=== PATIENT | male | born 1980 | race Caucasian/White ===

== ENCOUNTER 2024-06-25 14:53 | Outpatient (CLI) | payer MEDICARE, OTHER, SELFPAY ==
[2024-06-25 18:54] LABS: Basophils # 0.1 K/mm3 (0-0.2); Basophils % 0.9 % (0.1-2.0); Eosinophils # 0.1 K/mm3 (0.0-0.4); Hematocrit 37.1 % (42.0-52.0); Hemoglobin 12.4 g/dL (14.1-18.0); Lymphocytes # 1.5 K/mm3 (0.7-4.5); Mean Corpuscular HGB Conc 33.4 g/dL (31.8-35.4); Mean Corpuscular Hemoglobin 32.4 pg (27.0-31.2); Mean Corpuscular Volume 97.1 fl (80-94); Mean Platelet Volume 9.1 fl (7.4-10.4); Monocytes # 0.5 K/mm3 (0.1-1.0); Monocytes % 7.2 % (1.7-9.3); Neutrophils # 4.4 K/mm3 (1.8-7.8); Platelet Count 424 K/mm3 (142-424); Red Blood Count 3.82 M/mm3 (4.60-6.20); Red Cell Distribution Width 13.4 % (11.5-17.5); White Blood Count 6.5 K/mm3 (4.8-10.8)
[2024-06-25 19:06] LABS: Alanine Aminotransferase 18 U/L (12-78); Albumin Level 3.5 g/dl (3.5-5.0); Albumin/Globulin Ratio 1.5 (1.1-1.8); Alkaline Phosphatase 103 U/L (38-126); Anion Gap 10.7 mEq/L (5-15); Aspartate Amino Transferase 25 U/L (17-59); Bilirubin,Total 0.5 mg/dl (0.2-1.3); Blood Urea Nitrogen 24 mg/dl (9-20); Carbon Dioxide 21 mmol/L (22.0-30.0); Chloride 114 mmol/L (98-107); Chol/HDL Ratio 2.8 (1-3.5); Cholesterol 86 mg/dl (140-200); Estimated Glomerular Filt Rate 93 ml/min (>60); GFR (African American) 112 ML/MIN (>60); Globulin 2.3 g/dL (1.3-3.2); Glucose 83 mg/dl (74-100); HDL Cholesterol 31 mg/dl (40-60); Potassium 4.7 mmoL/L (3.5-5.1); Sodium 141 mmol/L (136-145); Total Protein,Serum 5.8 g/dl (6.3-8.2); Triglycerides 105 mg/dl (30-150); VLDL Cholesterol 21 mg/dL (0-40)
[2024-06-25 19:14] LABS: Direct LDL Cholesterol 38.06 mg/dL (100-129)
[2024-06-25 21:39] LABS: HIV (1&2) Antibody Rapid NONREACTIVE (NONREACTIVE)
[2024-06-27 08:22] LABS: HCV Ab Non Reactive (Non Reactive)
== END 2024-06-25 23:59 | disposition home or self-care (01) ==
LOC: LAB.DROPOF 06-28 14:54
PROVIDERS: PCP Family Medicine; Visit Provider Family Medicine
DX: G40.909 Epilepsy, unspecified, not intractable, without status epilepticus (principal); E78.5 Hyperlipidemia, unspecified; I10 Essential (primary) hypertension; Z11.59 Encounter for screening for other viral diseases; I25.10 Atherosclerotic heart disease of native coronary artery without angina pectoris; Z95.5 Presence of coronary angioplasty implant and graft
CPT/HCPCS: 80053; 80061; 80156; 85025; 86803; 87389

== ENCOUNTER 2024-09-07 07:36 | Emergency (ER) | payer MEDICARE, OTHER, SELFPAY ==
[2024-09-07 07:36] VITALS: BP 161/109; PULSE 87; RESP 16; TEMP 37; O2SAT 100; BMI 34.2
--- NOTE | 2024-09-07 07:47 | CT_ITS ---
FINAL REPORT TECHNIQUE: Pre-and postcontrast images of the abdomen and pelvis were performed by computed tomography. Extensive 3-D reconstruction images were performed. A CTA was performed. This study was performed with techniques to keep radiation doses as low as reasonably achievable (ALARA). Individualized dose reduction techniques using automated exposure control or adjustment of mA and/or kV according to the patient's size were employed. CLINICAL HISTORY: large painful hemorrhoids COMPARISON: None FINDINGS: ABDOMEN AND PELVIS: The lung bases are clear. Precontrast images demonstrate no evidence of nephrolithiasis. There is moderate hepatomegaly present measuring up to 21 cm in the craniocaudal dimension. The gallbladder is present. The adrenals, spleen and pancreas are unremarkable. The appendix is present. There is a Weston catheter and a decompressed bladder, with a slightly thickened wall. There are bilateral L5 pars defects, with minimal spondylolisthesis at the L5-S1 level. There is prominent perianal soft tissue thickening, likely secondary to the patient's known hemorrhoids. CTA: The abdominal aorta is proper caliber. The SMA, celiac axis, and SWETA are patent. There is no significant stenosis or calcification. There is focal stenosis of the origin of the right renal artery, of approximately 50%. The left renal artery is patent. This is somewhat greater than expected for the patient's chronologic age. There are mild to moderate vascular calcifications present in the proximal iliac arteries, also greater than expected for the patient's chronologic age. No vascular abnormality is noted in the pelvis to explain rectal bleeding. IMPRESSION: Moderate hepatomegaly as described. Prominent perianal soft tissue thickening is noted, consistent with the clinical history of hemorrhoids. However, no significant vascular abnormality is identified in the pelvis. Focal stenosis of the origin of the right renal artery of approximately 50%. There is also moderate calcification of the proximal iliac arteries. Findings are greater than expected given the patient's chronologic age. Reviewed, Interpreted and Dictated by Aron Dodson MD Transcribed by Meera Hairston Authenticated and [facility]
--- NOTE | 2024-09-07 07:50 | ED_ITS ---
Discharge Plan Disposition Patient Disposition: Home, Self-Care Chief Complaint: Urogenital-Male Prescriptions Prescriptions: No Action cyanocobalamin (vitamin B-12) 1,000 mcg capsule 1,000 mcg PO DAILY aspirin 325 mg tablet,delayed release (DR/EC) 325 mg PO DAILY Qty: 90 1RF atorvastatin 80 mg tablet 80 mg PO DAILY Qty: 90 1RF carbamazepine 200 mg capsule, ER multiphase 12 hr 200 mg PO BID Qty: 180 1RF cetirizine [All Day Allergy (cetirizine)] 10 mg tablet 10 mg PO DAILY Qty: 90 1RF ezetimibe 10 mg tablet 10 mg PO DAILY Qty: 90 1RF furosemide 20 mg tablet 20 mg PO DAILY Qty: 90 1RF lisinopril 10 mg tablet 10 mg PO DAILY Qty: 90 1RF mirtazapine 7.5 mg tablet 7.5 mg PO DAILY Qty: 90 1RF nitroglycerin 0.4 mg tablet, sublingual 0.4 mg sublingual Q5M PRN (Reason: chest pain) Qty: 20 1RF Rx Instructions: do not exceed 3 doses per episode paroxetine HCl 40 mg tablet 40 mg PO DAILY Qty: 90 1RF potassium chloride 10 mEq capsule, extended release 10 meq PO DAILY Qty: 90 1RF propranolol 40 mg tablet 40 mg PO BID Qty: 180 1RF omega 3-yiz-fqb-fish oil 120-180-500 mg capsule 1 cap PO DAILY Qty: 90 1RF Referrals Follow up/Referrals: Kee Romo MD [Staff Physician] - See instructions Activity Restrictions/Add. Instructions Additional Instructions/Restrictions: Call your family doctor to establish care for this visit to the emergency department and schedule follow-up within 48 hours to ensure improvement. If you have any worsening of your condition or any other concerning signs or symptoms, return to the emergency department or your primary care doctor for further evaluation. General surgery information here, call them to schedule follow-up about your hemorrhoids. Information with colorectal surgery at [facility] also listed here, contact them to schedule follow-up for prolapsed rectum and definitive treatment. Do 1-2 sitz bath's per day with Epsom salt and a couple inches of water. Also be sure to take MiraLAX 1 capful daily until following up and be sure that you are having 1-[address] daily[address] Maximiliano MD Address: [facility], [place], [address] [place] [id number] Clinical Impressions Clinical Impression: Complete rectal prolapse, External hemorrhoids, Internal hemorrhoid Instructions Patient Instructions: DI for Urinary Tract Infection (UTI), DI for Urinary Tract Infection in Children Print Language Print Language: Czech Discharge ED Provider: Lg Barrera General Adult HPI General Chief complaint: Urogenital-Male Stated complaint: constipated Time Seen by Provider: 09/07/24 07:44 History of Present Illness HPI narrative: Please note that above description of symptoms, in this electronic medical record under categorization of recalled from ER triage doctor by RN are reflective of an initial nursing assessment, however, is not reflective of my full history and physical exam that was personally taken and clarified. Consequentially, this preceding description of symptoms, which may include the patient's categorized chief complaint in the EMR, do not reflect my personal clinical impression, and the ultimate description of history of present illness and patient stated complaints should be deferred to this section of the note. Unless stated otherwise or congruent with this section of the note, additional signs, symptoms, or incongruence should be interpreted as inaccurate with my clinical impression. Related Data Home Medications ?Medication ?Instructions ?Recorded ?Confirmed cyanocobalamin (vitamin B-12) 1,000 mcg PO DAILY 06/25/24 06/25/24 1,000 mcg capsule Previous Rx's ?Medication ?Instructions ?Recorded aspirin 325 mg tablet,delayed 325 mg PO DAILY #90 tabs 06/25/24 release atorvastatin 80 mg tablet 80 mg PO DAILY #90 tabs 06/25/24 carbamazepine 200 mg 200 mg PO BID #180 caps 06/25/24 capsule,extended release [id number] cetirizine 10 mg tablet (All Day 10 mg PO DAILY #90 tabs 06/25/24 Allergy (cetirizine)) ezetimibe 10 mg tablet 10 mg PO DAILY #90 tabs 06/25/24 furosemide 20 mg tablet 20 mg PO DAILY #90 tabs 06/25/24 lisinopril 10 mg tablet 10 mg PO DAILY #90 tabs 06/25/24 mirtazapine 7.5 mg tablet 7.5 mg PO DAILY #90 tabs 06/25/24 nitroglycerin 0.4 mg sublingual 0.4 mg sublingual Q5M PRN chest 06/25/24 tablet pain #20 tabs omega 2-nop-qls-fish oil 120 1 cap PO DAILY #90 caps 06/25/24 mg-180 mg-500 mg capsule paroxetine HCl 40 mg tablet 40 mg PO DAILY #90 tabs 06/25/24 potassium chloride 10 mEq 10 meq PO DAILY #90 caps 06/25/24 capsule,extended release propranolol 40 mg tablet 40 mg PO BID #180 tabs 06/25/24 Allergies Allergy/AdvReac Type Severity Reaction Status Date / Time cefaclor (From Ceclor) Allergy Verified 09/07/24 08:27 Sulfa (Sulfonamide Allergy Verified 09/07/24 08:27 Antibiotics) [facility] Disclaimer: The information contained in this section may have been updated after the patient was seen, as this information can be updated by other users. Medical History (Updated 09/07/24 @ 11:52 by Lg Barrera MD) Corectopia Seizure disorder Hyperlipidemia Hypertension Coronary artery disease Myocardial infarction Learning disability Mood disorder Edentulous Surgical History (Updated 06/25/24 @ 14:36 by Ike Walters MD) Stented coronary artery History of tonsillectomy and adenoidectomy Social History Smoking Status: Current every day smoker alcohol intake: never current occupational status: disabled Travel in the last 8 weeks: None Have you lived/traveled outside [place] in past 30 days?: No Contact w/someone who lives/traveled outside US past 30 days?: No Exposure to someone with infectious disease in past 14 days?: No Do you have a fever (greater than 100.4 F or 38 C)?: No Have you tested positive for COVID-19: No Exposed to someone with COVID-19 in past 14 days?: No Do you have a sore throat?: No Do you have a cough?: No Do you have any weakness?: No Do you have any diarrhea?: No Are you experiencing any unusual bleeding?: No Do you have any muscle aches/pain?: No Do you have any abdominal pain?: No Are you experiencing loss of taste or smell?: No ROS Obtained: Yes All systems reviewed & no additional complaints except as documented Physical Exam General General appearance: alert Head Head exam: atraumatic and normocephalic Eye Eye exam: Present normal appearance, PERRL and EOMI Neck Neck exam: Present normal inspection, full ROM and trachea midline Respiratory Respiratory exam: Absent respiratory distress, wheezes, stridor, accessory muscle use or prolonged expiratory phase Cardiovascular Cardiovascular exam: Present other (Pulses equal symmetric in upper and lower extremities) Abdominal Exam Abdominal exam: Present soft; Absent distention, tenderness, guarding, rebound or pulsatile mass Rectal Exam Rectal exam: Present other (Grossly positive bladder rectum. Numerous large internal and external hemorrhoids, none are thrombosed. Patient has mild rectal prolapse) Extremities Exam Extremities exam: Absent edema Neurological Exam Neurological exam: Present alert, oriented X3 and CN II-XII intact; Absent motor sensory deficit Skin Skin exam: Present warm and dry; Absent diaphoresis or erythema Medical Decision Making Medical Records Medical records reviewed: Yes I reviewed the patient's medical records. Screening: Per USPSTF and CDC recommendations, given the prevalence of disease in our region, it is our hospital?s policy to screen for HIV and viral Hepatitis for all patients aged 18 and over and those with ongoing risk factors. Ulices Inquiry Pt receiving controlled substance: No Ulices was queried for this patient: No Vital Signs: 09/07/24 07:36 09/07/24 08:11 09/07/24 10:42 Temperature 98.6 F Temperature Source Oral Pulse Rate 87 84 Pulse Rate [Left Radial] 87 Respiratory Rate 16 Blood Pressure 147/84 H 127/85 Blood Pressure [Right Arm] 161/109 H Blood Pressure Mean [Right Arm] 126 02 Sat by Pulse Oximetry 100 97 99 Oxygen Delivery Method Room Air Room Air Room Air 09/07/24 11:00 09/07/24 11:31 Temperature Temperature Source Pulse Rate 76 76 Pulse Rate [Left Radial] Respiratory Rate Blood Pressure 121/81 124/85 Blood Pressure [Right Arm] Blood Pressure Mean [Right Arm] 02 Sat by Pulse Oximetry 97 97 Oxygen Delivery Method Room Air Room Air Lab Data Lab Results 09/07/24 07:59: Urine Color Yellow, Urine Appearance Clear, Urine pH 6.0, Ur Specific [place] 1.010, Urine Protein Negative, Urine Glucose (UA) Negative, Urine Ketones Negative, Urine Blood 1+ A, Urine Nitrate Negative, Urine Bilirubin Negative, Urine Urobilinogen 0.2, Ur Leukocyte Esterase Negative, Urine RBC 3-5, Urine WBC None, Ur Squamous Epith Cells Occasional, Urine Bacteria Trace 09/07/24 08:01: WBC 9.1, RBC 3.76 L, Hgb 11.7 L, Hct 33.8 L, MCV 89.9, MCH 31.1, MCHC 34.6, RDW 12.5, Plt Count 381, MPV 9.6, Neut % (Auto) 64.3, Lymph % (Auto) 22.4, [place] % (Auto) 11.5 H, Eos % (Auto) 1.2, Baso % (Auto) 0.4, Neut # (Auto) 5.8, Lymph # (Auto) 2.0, [place] # (Auto) 1.0, Eos # (Auto) 0.1, Baso # (Auto) 0.0, Sodium 132 L, Potassium 3.2 L, Chloride 102, Carbon Dioxide 23, Anion Gap 10.2, BUN 12, Creatinine 0.80, Estimated Creat Clear 174, Estimated GFR 106, Est GFR ( Amer) 128, Glucose 106 H, Lactate 1.0, Calcium 9.2, Total Bilirubin 0.4, AST 26, ALT 19, Alkaline Phosphatase 97, Total Protein 6.4, Albumin 3.9, Globulin 2.5, Albumin/Globulin Ratio 1.6, Lipase 85 09/07/24 08:01 09/07/24 08:01 Orders (Tests/Meds): ED MEDICATIONS Discontinued Medications Generic Name Dose Route Start Last Admin Trade Name Viv PRN Reason Stop Dose Admin Hydromorphone HCl 0.5 mg 09/07/24 07:47 09/07/24 08:00 Hydromorphone 2mg/Ml Syringe IV 09/07/24 07:48 0.5 mg ONCE ONE Administration Hydromorphone HCl 1 mg 09/07/24 11:14 09/07/24 11:18 Hydromorphone 2mg/Ml Syringe IV 09/07/24 11:15 1 mg ONCE ONE Administration Iopamidol 80 ml 09/07/24 09:47 09/07/24 09:48 Iopamidol-370 (76%);100ml Bottle IV 09/07/24 09:48 80 ml ONCE ONE Administration Ketorolac Tromethamine 15 mg 09/07/24 07:47 09/07/24 08:00 Ketorolac 30mg/Ml Vial IV 09/07/24 07:48 15 mg ONCE ONE Administration Ondansetron HCl 4 mg 09/07/24 07:47 09/07/24 08:00 Ondansetron 4mg/2ml Vial IV 09/07/24 07:48 4 mg ONCE ONE Administration Sodium Chloride 50 ml 09/07/24 09:47 09/07/24 09:48 0.9 % Sodium Chloride 50 Ml Vial IV 09/07/24 09:48 50 ml ONCE ONE Administration Sodium Chloride 10 ml 09/07/24 09:47 09/07/24 09:48 Sodium Chloride 0.9% 10ml Syr (Rad Only) IV 09/07/24 09:48 10 ml ONCE ONE Administration ORDERS Category Date Time Status CT angio abdomen pelvis Stat Cat Scan 09/07/24 07:47 Completed CBC w/Auto Diff [Complete Blood Count Auto Diff] Stat Lab 09/07/24 08:01 Completed CMP [Comprehensive Metabolic Panel] Stat Lab 09/07/24 08:01 Completed Lactic Acid Stat Lab 09/07/24 08:01 Completed Lipase Stat Lab 09/07/24 08:01 Completed UA [Urinalysis and Microscopic] Stat Lab 09/07/24 07:59 Completed Medical Decision Narrative: 44-year-old male with chronic constipation and hemorrhoids presenting with hemorrhoid pain and difficulty urinating. States that he has been grunting to urinate for the past couple of days. Last bowel movement was yesterday and was small, hard efren that he needed to grunt in order to pass. States he is having mild abdominal pain and mild to moderate rectal pain. Also having gross blood in his stool. Patient has tried stool softeners, but has not been on chronic stool softener and has not followed for anyone regarding this problem. History was obtained via conversation with patient. On arrival, patient hemodynamically stable, alert, oriented x4, appropriate, GCS 15, moving all extremities spontaneously. Full physical exam performed and significant for patient has rectal prolapse with numerous large internal and external hemorrhoids. Gross blood at the rectum. No active bleeding. No thrombosed hemorrhoids. Patient also has a prolapsed rectum without abdominal pain. Differential includes constipation, diarrhea, obstipation, ischemic prolapse, thrombosed hemorrhoid, bleeding internal hemorrhoid, among others. Patient placed on continuous cardiac monitoring and continuous pulse ox with initial blood pressure 161/109, heart rate 87, saturation 100% on room air. Patient was given Dilaudid for symptomatic management and correction of underlying abnormalities. Table sugar was applied to rectum. Patient was also given milk and molasses enema. On reevaluation, patient had large volume bowel movement. Still having pain in his rectum, I got CT angiogram of the abdomen and pelvis in order to evaluate blood flow to the rectum as well as hemorrhoids as well as lower GI bleed. Workup independently interpreted and significant for nonactionable CBC. Chemistry with mild hyponatremia and hypokalemia. Lipase normal. Urinalysis without concern for UTI. On independent interpretation of imaging, no acute intra-abdominal abnormality or vascular abnormality acutely. He does have vascular stenosis throughout the abdomen. See radiology read for full review of final results. On reevaluation, patient still moderately uncomfortable. Table sugar had been on rectum for approximately 30 minutes. 1 mg of Dilaudid was administered and rectal prolapse was manually reduced successfully. Patient states that he is feeling much better and his rectum does not feels full. I talked to the general surgeon here on-call and recommended outpatient follow-up with another colorectal surgeon in [place]. Information for [facility] was provided. Because patient at baseline without signs or symptoms of clinical decompensation, deemed appropriate for discharge. Results were relayed to patient who voiced understanding and were agreeable to outpatient management and follow up. I discussed my clinical impression with patient and answered all questions. At this time, the evidence for any other entities in the differential is insufficient to warrant any further testing or ED observation. This was explained as well. Advisory was given that persistent or worsening symptoms require further evaluation. I confirmed the understanding of this discussion. Sub Master disclaimer Much of this encounter note is an electronic residential team leader spoken language to printed text. Electronic residential team leader of the spoken language may permit errors. Although I have reviewed the note, some errors may still exist. Procedure note: Rectal prolapse reduction. Table sugar was applied and 30 minutes elapsed. On reevaluation, patient rectum appears mildly better, but still prolapsed and tender. 1 mg Dilaudid was administered and rectal prolapse was manually reduced with digital pressure. Patient had moderate pain during the procedure, however afterward sat up, states that he feels much better. Critical Care Critical Care Time Critical Care Time: No
[2024-09-07] MEDS: HYDROMORPHONE 2MG/ML SYRINGE 0.5 MG IV (08:00)
[2024-09-07] MEDS: ONDANSETRON 4MG/2ML VIAL 4 MG IV (08:00)
[2024-09-07] MEDS: KETOROLAC 30MG/ML VIAL 15 MG IV (08:00)
[2024-09-07 08:04] LABS: Microscopic, Urine URINE MICROSCOPIC (MICROSCOPIC)
[2024-09-07 08:11] VITALS: BP 147/84; PULSE 87; O2SAT 97
[2024-09-07 08:12] LABS: Appearance,Urine CLEAR (Clear); Bilirubin,Urine Negative (Negative); Blood, Urine 1+ (Negative); Color,Urine YELLOW (Yellow); Glucose,Urine (UA) Negative (Negative); Ketones,Urine Negative (Negative); Leukocyte Esterase,Urine Negative (Negative); Nitrate,Urine Negative (Negative); Protein,Urine Negative (Negative); Urobilinogen,Urine 0.2 EU/dl (0.2)
[2024-09-07 08:22] LABS: Bacteria,Urine Trace /lpf; Squamous Epithelial Cell,Urine Occasional #/hpf (0-5)
[2024-09-07 08:32] LABS: Basophils % 0.4 % (0.1-2.0); Eosinophils # 0.1 K/mm3 (0.0-0.4); Eosinophils % 1.2 % (0.1-12.0); Hematocrit 33.8 % (42.0-52.0); Hemoglobin 11.7 g/dL (14.1-18.0); Lymphocytes % 22.4 % (10-50); Mean Corpuscular HGB Conc 34.6 g/dL (31.8-35.4); Mean Corpuscular Hemoglobin 31.1 pg (27.0-31.2); Mean Corpuscular Volume 89.9 fl (80-94); Mean Platelet Volume 9.6 fl (7.4-10.4); Monocytes % 11.5 % (1.7-9.3); Neutrophils # 5.8 K/mm3 (1.8-7.8); Neutrophils % 64.3 % (37.0-80.0); Platelet Count 381 K/mm3 (142-424); Red Blood Count 3.76 M/mm3 (4.60-6.20); Red Cell Distribution Width 12.5 % (11.5-17.5); White Blood Count 9.1 K/mm3 (4.8-10.8)
[2024-09-07 08:38] LABS: Alanine Aminotransferase 19 U/L (12-78); Albumin Level 3.9 g/dl (3.5-5.0); Albumin/Globulin Ratio 1.6 (1.1-1.8); Alkaline Phosphatase 97 U/L (38-126); Aspartate Amino Transferase 26 U/L (17-59); Bilirubin,Total 0.4 mg/dl (0.2-1.3); Blood Urea Nitrogen 12 mg/dl (9-20); Calcium 9.2 mg/dl (8.4-10.2); Carbon Dioxide 23 mmol/L (22.0-30.0); Chloride 102 mmol/L (98-107); Creatinine Clearance Estimated 174 mL/min (50-200); Estimated Glomerular Filt Rate 106 ml/min (>60); GFR (African American) 128 ML/MIN (>60); Globulin 2.5 g/dL (1.3-3.2); Glucose 106 mg/dl (74-100); Lipase 85 U/L (23-300); Sodium 132 mmol/L (136-145); Total Protein,Serum 6.4 g/dl (6.3-8.2)
[2024-09-07 08:59] LABS: Anion Gap 10.2 mEq/L (5-15); Potassium 3.2 mmoL/L (3.5-5.1)
[2024-09-07] MEDS: IOPAMIDOL-370 (76%);100ML BOTTLE 80 ML IV (09:48)
[2024-09-07] MEDS: SODIUM CHLORIDE 0.9% 10ML SYR (RAD ONLY) 10 ML IV (09:48)
[2024-09-07] MEDS: 0.9 % SODIUM CHLORIDE 50 ML VIAL IV (09:48)
[2024-09-07 10:42] VITALS: BP 127/85; PULSE 84; O2SAT 99
--- NOTE | 2024-09-07 10:43 | PC.NURSE ---
per er md placed sugar on rectal area to help with reduction
[2024-09-07 11:00] VITALS: BP 121/81; PULSE 76; O2SAT 97
[2024-09-07] MEDS: HYDROMORPHONE 2MG/ML SYRINGE 1 MG IV (11:18)
[2024-09-07 11:31] VITALS: BP 124/85; PULSE 76; O2SAT 97
[2024-09-07 11:53] VITALS: BP 124/85; PULSE 76; RESP 16; TEMP 36.7; O2SAT 97
== END 2024-09-07 11:56 | disposition home or self-care (01) ==
PROVIDERS: Emergency Provider Emergency Medicine
DX: K64.4 Residual hemorrhoidal skin tags (principal); K64.8 Other hemorrhoids; K62.3 Rectal prolapse; K59.00 Constipation, unspecified; R39.198 Other difficulties with micturition; R10.9 Unspecified abdominal pain; K62.89 Other specified diseases of anus and rectum; K92.1 Melena
CPT/HCPCS: 74174; 80053; 81001; 83605; 83690; 85025; 96374; 96375; 99285; J1171; J1885; J2405; Q9967

== ENCOUNTER 2024-09-09 21:37 | Emergency (ER) | payer MEDICARE, OTHER, SELFPAY ==
[2024-09-09 21:37] VITALS: BP 145/81; PULSE 96; RESP 18; TEMP 36.8; O2SAT 98; BMI 30.4
--- NOTE | 2024-09-09 22:02 | HMH.EDGENADL ---
Discharge Plan Disposition Patient Disposition: Home, Self-Care Prescriptions Prescriptions: New levofloxacin 750 mg tablet 750 mg PO DAILY 7 Days Qty: 7 0RF ondansetron 4 mg tablet,disintegrating 4 mg PO Q6H PRN (Reason: nausea and vomiting) 5 Days Qty: 20 0RF No Action cyanocobalamin (vitamin B-12) 1,000 mcg capsule 1,000 mcg PO DAILY aspirin 325 mg tablet,delayed release (DR/EC) 325 mg PO DAILY Qty: 90 1RF atorvastatin 80 mg tablet 80 mg PO DAILY Qty: 90 1RF carbamazepine 200 mg capsule, ER multiphase 12 hr 200 mg PO BID Qty: 180 1RF cetirizine [All Day Allergy (cetirizine)] 10 mg tablet 10 mg PO DAILY Qty: 90 1RF ezetimibe 10 mg tablet 10 mg PO DAILY Qty: 90 1RF furosemide 20 mg tablet 20 mg PO DAILY Qty: 90 1RF lisinopril 10 mg tablet 10 mg PO DAILY Qty: 90 1RF mirtazapine 7.5 mg tablet 7.5 mg PO DAILY Qty: 90 1RF nitroglycerin 0.4 mg tablet, sublingual 0.4 mg sublingual Q5M PRN (Reason: chest pain) Qty: 20 1RF Rx Instructions: do not exceed 3 doses per episode paroxetine HCl 40 mg tablet 40 mg PO DAILY Qty: 90 1RF potassium chloride 10 mEq capsule, extended release 10 meq PO DAILY Qty: 90 1RF propranolol 40 mg tablet 40 mg PO BID Qty: 180 1RF omega 9-hdj-uva-fish oil 120-180-500 mg capsule 1 cap PO DAILY Qty: 90 1RF Referrals Follow up/Referrals: Provider,Referral, MD [Primary Care Provider] - See instructions Activity Restrictions/Add. Instructions Additional Instructions/Restrictions: Your evaluated today for a continuation of a recent ED visit we had an extensive evaluation including labs urinalysis and CT scan. You had a rectal prolapse at that time which was reduced there is no evidence of rectal prolapse today. Your bleeding that you are experiencing when you are having a bowel movement is not abnormal in the setting of hemorrhoids which you do have. Your abdominal exam is benign currently I reviewed all your records you did have a little bit of blood and trace bacteria in your urinalysis which is not definitively a urinary tract infection but given your ongoing symptoms we will treat you with antibiotics. You are also given a referral to colorectal surgery with Dr. Viera at the [facility] who is a specialist that you will need. Please continue to follow-up with that physician. If your rectum does prolapse and is unable to be reduced he may return to the emergency department. No further emergent medical intervention needed at the moment. Clinical Impressions Clinical Impression: UTI (urinary tract infection), Nausea Instructions Patient Instructions: DI for Acute Abdominal Pain Print Language Print Language: [place] Discharge ED Provider: Cristel London General Adult HPI General Chief complaint: Abdominal Pain Stated complaint: Rectal bleeding Time Seen by Provider: 09/09/24 21:50 Mode of Arrival: EMS Source of Information: Patient Limitations: No Limitations Description of Symptoms (Recalled from ER Triage Doc. by RN): Patient complains of painful urination, bleeding from his hemorrohids, abdominal pain and nausea. History of Present Illness HPI narrative: Patient is a 44-year-old presented with multiple complaints. Was here on September 07 with rectal prolapse and had a manual prolapse reduction as well as a CT scan blood work urinalysis. He states he is here with a continuation of the same symptoms. No significant worsening. CT scan was unremarkable did have some vascular pathology but nothing to suggest any abdominal pathology or lack of adequate blood supply to his rectum. His rectum was successfully reduced he claims that he believes it may be out today. Also states he is having some blood when he does have bowel movements. He was given referral to Dr. Viera with [facility] and has been unable to get them yet for follow-up. States has had some mild abdominal discomfort and nausea and some dysuria. Was told he may have a urinary tract infection but has not been on any antiemetics. Related Data Home Medications ?Medication ?Instructions ?Recorded ?Confirmed cyanocobalamin (vitamin B-12) 1,000 mcg PO DAILY 06/25/24 06/25/24 1,000 mcg capsule Previous Rx's ?Medication ?Instructions ?Recorded aspirin 325 mg tablet,delayed 325 mg PO DAILY #90 tabs 06/25/24 release atorvastatin 80 mg tablet 80 mg PO DAILY #90 tabs 06/25/24 carbamazepine 200 mg 200 mg PO BID #180 caps 06/25/24 capsule,extended release [id number] cetirizine 10 mg tablet (All Day 10 mg PO DAILY #90 tabs 06/25/24 Allergy (cetirizine)) ezetimibe 10 mg tablet 10 mg PO DAILY #90 tabs 06/25/24 furosemide 20 mg tablet 20 mg PO DAILY #90 tabs 06/25/24 lisinopril 10 mg tablet 10 mg PO DAILY #90 tabs 06/25/24 mirtazapine 7.5 mg tablet 7.5 mg PO DAILY #90 tabs 06/25/24 nitroglycerin 0.4 mg sublingual 0.4 mg sublingual Q5M PRN chest 06/25/24 tablet pain #20 tabs omega 7-reu-rwm-fish oil 120 1 cap PO DAILY #90 caps 06/25/24 mg-180 mg-500 mg capsule paroxetine HCl 40 mg tablet 40 mg PO DAILY #90 tabs 06/25/24 potassium chloride 10 mEq 10 meq PO DAILY #90 caps 06/25/24 capsule,extended release propranolol 40 mg tablet 40 mg PO BID #180 tabs 06/25/24 levofloxacin 750 mg tablet 750 mg PO DAILY 7 days #7 tabs 09/09/24 ondansetron 4 mg disintegrating 4 mg PO Q6H PRN nausea and 09/09/24 tablet vomiting 5 days #20 tabs Allergies Allergy/AdvReac Type Severity Reaction Status Date / Time cefaclor (From Ceclor) Allergy Verified 09/07/24 08:27 Sulfa (Sulfonamide Allergy Verified 09/07/24 08:27 Antibiotics) [facility] Disclaimer: The information contained in this section may have been updated after the patient was seen, as this information can be updated by other users. Medical History (Updated 09/09/24 @ 22:09 by Cristel London MD) Corectopia Seizure disorder Hyperlipidemia Hypertension Coronary artery disease Myocardial infarction Learning disability Mood disorder Edentulous Surgical History (Updated 06/25/24 @ 14:36 by Ike Walters MD) Stented coronary artery History of tonsillectomy and adenoidectomy Social History Smoking Status: Current every day smoker alcohol intake: never current occupational status: disabled Travel in the last 8 weeks: None Have you lived/traveled outside US in past 30 days?: No Contact w/someone who lives/traveled outside US past 30 days?: No Exposure to someone with infectious disease in past 14 days?: No Do you have a fever (greater than 100.4 F or 38 C)?: No Have you tested positive for COVID-19: No Exposed to someone with COVID-19 in past 14 days?: No Do you have a sore throat?: No Do you have a cough?: No Do you have any weakness?: No Do you have any diarrhea?: No Are you experiencing any unusual bleeding?: Yes Do you have any muscle aches/pain?: No Do you have any abdominal pain?: No Are you experiencing loss of taste or smell?: No ROS Obtained: Yes All systems reviewed & no additional complaints except as documented Physical Exam General General appearance: alert and in no apparent distress Respiratory Respiratory exam: Present normal lung sounds bilaterally Cardiovascular Cardiovascular exam: Present regular rate Abdominal Exam Abdominal exam: Present soft; Absent distention or tenderness Rectal Exam Rectal exam: Present other (External hemorrhoids no evidence of bleeding there is no rectal prolapse) Neurological Exam Neurological exam: Present alert and oriented X3 Medical Decision Making Medical Records Screening: Per USPSTF and CDC recommendations, given the prevalence of disease in our region, it is our hospital?s policy to screen for HIV and viral Hepatitis for all patients aged 18 and over and those with ongoing risk factors. Ulices Inquiry Pt receiving controlled substance: No Vital Signs: 09/09/24 21:37 Temperature 98.2 F Temperature Source Oral Pulse Rate [Right Radial] 96 H Respiratory Rate 18 Blood Pressure [Right Arm] 145/81 H Blood Pressure Mean [Right Arm] 102 Blood Pressure Source [Right Arm] Automatic Cuff Blood Pressure Position [Right Arm] Supine 02 Sat by Pulse Oximetry 98 Oxygen Delivery Method Room Air Orders (Tests/Meds): ED MEDICATIONS Generic Name Dose Route Start Last Admin Trade Name Freq PRN Reason Stop Dose Admin Ondansetron HCl 4 mg 09/09/24 22:02 09/09/24 22:07 Ondansetron 4mg Odt SL 09/09/24 22:03 4 mg ONCE ONE Administration Medical Decision Narrative: Very stable nontoxic-appearing benign abdominal exam and a 44-year-old who recently was in the ED with a rectal prolapse which she was concerned about today. There is no evidence of rectal prolapse on my exam. He states that he believes it may have be coming in and out when he has a bowel movement. He has been given follow-up with colorectal surgery [facility]. I did review his imaging as well as his labs and urinalysis from 2 days ago. His symptoms have not significantly changed. He is hemodynamically stable I do not think there is any benefit in repeating labs. He did have some hematuria and some trace bacteria and with some dysuria is possible he has a urinary tract infection. Therefore I will give him some antibiotics. He is allergic to cephalosporins and sulfa he was given a prescription of Levaquin. He also has been given a dose of Zofran and a prescription of Zofran to treat some of the nausea he has been dealing with at home. He has been encouraged to follow-up with the colorectal surgeon and resume taking his primary care doctor and to return with any significant worsening of his symptoms which he has not had. I do not believe a repeat CT scan is warranted at the moment as well he is only 44 years old and chemo to radiation exposure outweighs any benefit in this particular situation. Critical Care Critical Care Time Critical Care Time: No
[2024-09-09] MEDS: ONDANSETRON 4MG ODT 4 MG SL (22:07)
[2024-09-09 22:10] VITALS: BP 137/89; PULSE 91; RESP 20; TEMP 36.6; O2SAT 98
== END 2024-09-09 22:17 | disposition home or self-care (01) ==
PROVIDERS: Emergency Provider Student in an Organized Health Care Education/Training Program; PCP Family Medicine
DX: K64.4 Residual hemorrhoidal skin tags (principal); N39.0 Urinary tract infection, site not specified; K92.1 Melena; R30.9 Painful micturition, unspecified; R10.9 Unspecified abdominal pain; R11.0 Nausea
CPT/HCPCS: 99283; Q0162

== ENCOUNTER 2024-09-28 13:19 | Outpatient (CLI) | payer MEDICARE, OTHER, SELFPAY ==
[2024-09-28 18:40] LABS: Anion Gap 12.1 mEq/L (5-15); Blood Urea Nitrogen 15 mg/dl (9-20); Calcium 9.1 mg/dl (8.4-10.2); Carbon Dioxide 24 mmol/L (22.0-30.0); Chloride 108 mmol/L (98-107); Estimated Glomerular Filt Rate 93 ml/min (>60); GFR (African American) 112 ML/MIN (>60); Glucose 91 mg/dl (74-100); Potassium 4.1 mmoL/L (3.5-5.1); Sodium 140 mmol/L (136-145)
== END 2024-09-28 23:59 | disposition home or self-care (01) ==
LOC: LAB.DROPOF 09-29 13:20
PROVIDERS: PCP Family Medicine; Visit Provider Family Medicine
DX: E87.6 Hypokalemia (principal)
CPT/HCPCS: 80048

== ENCOUNTER 2025-03-31 14:02 | Outpatient (CLI) | payer MEDICARE, OTHER, SELFPAY ==
[2025-03-31 20:03] LABS: Alanine Aminotransferase 17 U/L (12-78); Albumin Level 4.1 g/dl (3.5-5.0); Albumin/Globulin Ratio 2.0 (1.1-1.8); Alkaline Phosphatase 100 U/L (38-126); Anion Gap 9.9 mEq/L (5-15); Aspartate Amino Transferase 27 U/L (17-59); Bilirubin,Total 0.2 mg/dl (0.2-1.3); Blood Urea Nitrogen 17 mg/dl (9-20); Calcium 9.3 mg/dl (8.4-10.2); Carbamazepine (Tegretol) 9.9 ug/ml (4.0-12.0); Carbon Dioxide 24 mmol/L (22.0-30.0); Chloride 110 mmol/L (98-107); Cholesterol 111 mg/dl (140-200); Creatinine,Serum 1.10 mg/dl (0.66-1.25); Estimated Glomerular Filt Rate 73 ml/min (>60); GFR (African American) 89 ML/MIN (>60); Globulin 2.1 g/dL (1.3-3.2); Glucose 70 mg/dl (74-100); HDL Cholesterol 38 mg/dl (40-60); Potassium 4.9 mmoL/L (3.5-5.1); Sodium 139 mmol/L (136-145); Total Protein,Serum 6.2 g/dl (6.3-8.2); Triglycerides 117 mg/dl (30-150)
== END 2025-03-31 23:59 | disposition home or self-care (01) ==
LOC: LAB.DROPOF 04-01 10:18
PROVIDERS: PCP Family Medicine; Visit Provider Family Medicine
DX: E78.5 Hyperlipidemia, unspecified (principal); I10 Essential (primary) hypertension; G40.909 Epilepsy, unspecified, not intractable, without status epilepticus; Z51.81 Encounter for therapeutic drug level monitoring
CPT/HCPCS: 80053; 80061; 80156

== ENCOUNTER 2025-04-23 20:27 | Emergency (ER) | payer MEDICARE, OTHER, SELFPAY ==
--- NOTE | 2025-04-23 20:27 | ECG_ITS ---
APPROVED REPORT Exam: Resting ECG HR:72 bpm ECG Measurements Heart Rate [address] 141 P 59 QRSd 98 QRS 45 QT 385 T 53 QTc 409 Conclusion Normal sinus rhythm at [address] or T wave changes concerning for ischemia Electronically signed by : Leigh Reddy, 05/02/2025 00:14:15
[2025-04-23 20:31] VITALS: BP 159/89; PULSE 73; RESP 16; TEMP 36.6; O2SAT 100; BMI 32.5
--- NOTE | 2025-04-23 20:37 | HMH.EDGENADL ---
Discharge Plan Disposition Patient Disposition: Home, Self-Care Condition: Good Prescriptions Prescriptions: New methocarbamol 500 mg tablet 500 mg PO BID Qty: 60 0RF lidocaine 5 % adhesive patch,medicated 1 patch topical DAILY Qty: 15 0RF Rx Instructions: leave on most painful area for up to 12 hrs No Action cyanocobalamin (vitamin B-12) 1,000 mcg capsule 1,000 mcg PO DAILY aspirin 325 mg tablet,delayed release (DR/EC) 325 mg PO DAILY Qty: 90 1RF atorvastatin 80 mg tablet 80 mg PO DAILY Qty: 90 1RF carbamazepine 200 mg capsule, ER multiphase 12 hr 200 mg PO BID Qty: 180 1RF cetirizine [All Day Allergy (cetirizine)] 10 mg tablet 10 mg PO DAILY Qty: 90 1RF ezetimibe 10 mg tablet 10 mg PO DAILY Qty: 90 1RF furosemide 20 mg tablet 20 mg PO DAILY Qty: 90 1RF lisinopril 10 mg tablet 10 mg PO DAILY Qty: 90 1RF mirtazapine 7.5 mg tablet 7.5 mg PO DAILY Qty: 90 1RF nitroglycerin 0.4 mg tablet, sublingual 0.4 mg sublingual Q5M PRN (Reason: chest pain) Qty: 20 1RF Rx Instructions: do not exceed 3 doses per episode omega 0-hrf-tpq-fish oil 120-180-500 mg capsule 1 cap PO DAILY Qty: 90 1RF paroxetine HCl 40 mg tablet 40 mg PO DAILY Qty: 90 1RF potassium chloride 10 mEq capsule, extended release 10 meq PO DAILY Qty: 90 1RF propranolol 40 mg tablet 40 mg PO BID Qty: 180 1RF triamcinolone acetonide 0.025 % ointment 1 applic topical TID PRN (Reason: rash) Qty: 15 0RF Rx Instructions: apply to rash on back as directed Referrals Follow up/Referrals: Provider,Referral, MD [Referring, Medical] - See instructions Activity Restrictions/Add. Instructions Additional Instructions/Restrictions: Take Tylenol, ibuprofen in addition to the muscle relaxer and lidocaine patches I have prescribed you. You likely have a contusion of your ribs from falling. Return to the emergency department for any acute or worsening symptoms or otherwise follow-up with your primary care provider. Clinical Impressions Clinical Impression: Contusion of rib Instructions Patient Instructions: DI for Acute Abdominal Pain Print Language Print Language: Vietnamese Discharge ED Provider: Leigh Reddy General Adult HPI General Chief complaint: Abdominal Pain Stated complaint: chest pain Time Seen by Provider: 04/23/25 20:31 Mode of Arrival: EMS Source of Information: Patient and EMS Description of Symptoms (Recalled from ER Triage Doc. by RN): Pt reports he is having left side CP which he states comes and goes. Pt rates pain 6/10 and states it is pressure. Pt also reports having a recent fall. History of Present Illness HPI narrative: Patient is a 45-year-old gentleman with no significant past medical history who presented to the emergency department with left-sided chest pain. Patient states that he fell a week ago onto that his left side. Patient states that he is having pain with deep breathing. Patient denies any fevers. Patient denies any abdominal pain nausea vomiting diarrhea. Patient denies any history of cardiac disease. Patient has not taken anything for pain control. She is not on any blood thinners. Patient has not had any hemoptysis, recent travel, no history of pulmonary embolism. Related Data Home Medications ?Medication ?Instructions ?Recorded ?Confirmed cyanocobalamin (vitamin B-12) 1,000 mcg PO DAILY 06/25/24 04/26/25 1,000 mcg capsule Previous Rx's ?Medication ?Instructions ?Recorded aspirin 325 mg tablet,delayed 325 mg PO DAILY #90 tabs 09/28/24 release atorvastatin 80 mg tablet 80 mg PO DAILY #90 tabs 09/28/24 carbamazepine 200 mg 200 mg PO BID #180 caps 09/28/24 capsule,extended release [id number] cetirizine 10 mg tablet (All Day 10 mg PO DAILY #90 tabs 09/28/24 Allergy (cetirizine)) ezetimibe 10 mg tablet 10 mg PO DAILY #90 tabs 09/28/24 furosemide 20 mg tablet 20 mg PO DAILY #90 tabs 09/28/24 lisinopril 10 mg tablet 10 mg PO DAILY #90 tabs 09/28/24 mirtazapine 7.5 mg tablet 7.5 mg PO DAILY #90 tabs 09/28/24 nitroglycerin 0.4 mg sublingual 0.4 mg sublingual Q5M PRN chest 09/28/24 tablet pain #20 tabs omega 6-zxa-agt-fish oil 120 1 cap PO DAILY #90 caps 09/28/24 mg-180 mg-500 mg capsule paroxetine HCl 40 mg tablet 40 mg PO DAILY #90 tabs 09/28/24 potassium chloride 10 mEq 10 meq PO DAILY #90 caps 09/28/24 capsule,extended release propranolol 40 mg tablet 40 mg PO BID #180 tabs 09/28/24 triamcinolone acetonide 0.025 % 1 applic topical TID PRN rash #15 02/28/25 topical ointment grams lidocaine 5 % topical patch 1 patch topical DAILY #15 ea 04/23/25 methocarbamol 500 mg tablet 500 mg PO BID #60 tabs 04/23/25 Allergies Allergy/AdvReac Type Severity Reaction Status Date / Time cefaclor (From [facility]) Allergy Verified 04/26/25 14:48 Sulfa (Sulfonamide Allergy Verified 04/26/25 14:48 Antibiotics) [facility] Disclaimer: The information contained in this section may have been updated after the patient was seen, as this information can be updated by other users. Medical History Rash and nonspecific skin eruption Rectal prolapse Corectopia Seizure disorder Hyperlipidemia Hypertension Coronary artery disease Myocardial infarction Learning disability Mood disorder Edentulous Surgical History Stented coronary artery History of tonsillectomy and adenoidectomy Social History Smoking Status: Current every day smoker alcohol intake: never current occupational status: disabled Travel in the last 8 weeks?: None ROS Obtained: Yes All systems reviewed & no additional complaints except as documented and Yes Systems reviewed as appropriate & no additional complaints except as documented Physical Exam General General appearance: alert and in no apparent distress Head Head exam: atraumatic, normocephalic and normal inspection Eye Eye exam: Present normal appearance, PERRL and EOMI; Absent scleral icterus ENT ENT exam: Present normal exam and normal external ear exam Neck Neck exam: Present normal inspection and full ROM Chest Chest inspection: Present normal inspection and symmetric chest wall rise Respiratory Respiratory exam: Present normal lung sounds bilaterally; Absent respiratory distress or wheezes Cardiovascular Cardiovascular exam: Present regular rate, normal rhythm, normal heart sounds and other (left side chest wall tenderness, no bruising) Abdominal Exam Abdominal exam: Present soft and distention; Absent tenderness, guarding or rebound Extremities Exam Extremities exam: Present normal inspection and full ROM Back Exam Back exam: Present normal inspection and full ROM Neurological Exam Neurological exam: Present alert and oriented X3 Psychiatric Psychiatric exam: Present normal affect and normal mood Skin Skin exam: Present warm and dry Medical Decision Making Medical Records Medical records reviewed: Yes I reviewed the patient's medical records. Screening: Per USPSTF and CDC recommendations, given the prevalence of disease in our region, it is our hospital?s policy to screen for HIV and viral Hepatitis for all patients aged 18 and over and those with ongoing risk factors. Ulices Inquiry Pt receiving controlled substance: No Vital Signs: 04/23/25 20:31 04/23/25 21:00 04/23/25 21:25 Temperature 97.9 F 98.0 F Temperature Source Oral Oral Pulse Rate 69 Pulse Rate [Left] 73 77 Respiratory Rate 16 18 16 Blood Pressure 131/89 Blood Pressure [Right Arm] 159/89 H Blood Pressure Mean 107 Blood Pressure Mean [Right Arm] 112 Blood Pressure Source Blood Pressure Source [Right Arm] Automatic Cuff Blood Pressure Position Blood Pressure Position [Right Arm] Sitting 02 Sat by Pulse Oximetry 100 97 96 Oxygen Delivery Method Room Air Room Air 04/23/25 21:45 04/23/25 22:00 04/23/25 23:14 Temperature 97.9 F Temperature Source Oral Pulse Rate 74 67 68 Pulse Rate [Left] Respiratory Rate 14 17 14 Blood Pressure 139/80 143/85 H 124/71 Blood Pressure [Right Arm] Blood Pressure Mean 99 Blood Pressure Mean [Right Arm] Blood Pressure Source Automatic Cuff Blood Pressure Source [Right Arm] Blood Pressure Position Supine Blood Pressure Position [Right Arm] 02 Sat by Pulse Oximetry 100 99 Oxygen Delivery Method Room Air Lab Data Lab results reviewed: Yes I reviewed the patient's lab results. Lab Results 04/23/25 20:04: WBC 6.9, RBC 4.30 L, Hgb 13.8 L, Hct 41.9 L, MCV 97.4 H, MCH 32.1 H, MCHC 32.9, RDW 13.6, Plt Count 376, MPV 10.0, Neut % (Auto) 51.6, Lymph % (Auto) 35.7, Coke % (Auto) 9.7 H, Eos % (Auto) 2.2, Baso % (Auto) 0.7, Neut # (Auto) 3.6, Lymph # (Auto) 2.5, Coke # (Auto) 0.7, Eos # (Auto) 0.2, Baso # (Auto) 0.1, Sodium 141, Potassium 3.5, Chloride 114 H, Carbon Dioxide 17 L, Anion Gap 13.5, BUN 18, Creatinine 0.80, Estimated Creat Clear 168, Estimated GFR 106, Est GFR ( Amer) 128, Glucose 94, Calcium 9.3, Total Bilirubin 0.4, AST 29, ALT 21, Alkaline Phosphatase 109, Troponin I < 0.01, Total Protein 7.3, Albumin 4.6, Globulin 2.7, Albumin/Globulin Ratio 1.7 04/23/25 20:04 04/23/25 20:04 Orders (Tests/Meds): ED MEDICATIONS Discontinued Medications Generic Name Dose Route Start Last Admin Trade Name Freq PRN Reason Stop Dose Admin Acetaminophen 1,000 mg 04/23/25 20:42 04/23/25 20:58 Acetaminophen 500mg Tab PO 04/23/25 20:43 1,000 mg ONCE ONE Administration Iopamidol 80 ml 04/23/25 21:17 04/23/25 21:18 Iopamidol-370 (76%);100ml Bottle IV 04/23/25 21:18 80 ml ONCE ONE Administration Oxycodone HCl 5 mg 04/23/25 20:43 04/23/25 20:58 Oxycodone 5mg Immediate Release Tablet PO 04/23/25 20:44 5 mg ONCE ONE Administration Sodium Chloride 40 ml 04/23/25 21:17 04/23/25 21:18 0.9 % Sodium Chloride 50 Ml Vial IV 04/23/25 21:18 40 ml ONCE ONE Administration Sodium Chloride 10 ml 04/23/25 21:17 04/23/25 21:18 Sodium Chloride 0.9% 10ml Syr (Rad Only) IV 05/23/25 21:16 10 ml NEEDED PRN Administration Maintain IV Site ORDERS Category Date Time Status CT angio chest PE protocol Stat Cat Scan 04/23/25 20:42 Completed CBC w/Auto Diff [Complete Blood Count Auto Diff] Stat Lab 04/23/25 20:04 Completed CMP [Comprehensive Metabolic Panel] Stat Lab 04/23/25 20:04 Completed Trop I [Troponin I] Stat Lab 04/23/25 20:04 Completed Medical Decision Narrative: Patient is an otherwise healthy 45-year-old gentleman who presented to the emergency department with left-sided chest pain. On arrival, patient was hemodynamically stable with unremarkable vital signs. Differential included but not limited to: ACS/IA, pneumothorax, hemothorax, rib fracture, pulmonary contusion, rib contusion, pulmonary embolism, musculoskeletal pain, amongst others. Patient's labs were reviewed and interpreted by myself: CBC showed no leukocytosis, hemoglobin was stable. Initial troponin was less than 0.1. CT PE was reviewed and interpreted by myself and showed no acute focal consolidation, pneumothorax, hemothorax, rib fractures or other acute pathology. Patient's EKG showed normal sinus rhythm without acute ST or T wave changes concerning for ischemia. Patient was given symptom control in the emergency Department I feel that given patient's negative workup he likely has a rib contusion from his fall. Patient was recommended to take Tylenol Motrin patient was given Robaxin and lidocaine patches. Patient was discharged home in stable condition return precautions were discussed. Given that patient has had chest pain for a week, second troponin was not indicated. Critical Care Critical Care Time Critical Care Time: No
--- NOTE | 2025-04-23 20:42 | CT_ITS ---
PROCEDURE INFORMATION: Exam: CTA Chest With Contrast Exam date and time: 04/23/2025 9:07 PM Age: 45 years old Clinical indication: Pain; Chest pressure; Additional info: Pleuritic pain, left chest wall tenderness TECHNIQUE: Imaging protocol: Computed tomographic angiography of the chest with contrast. Exam focused on the arteries. 3D rendering (Not supervised by radiologist): MIP and/or 3D reconstructed images were created by the technologist. Total images: 901 Radiation optimization: All CT scans at this facility use at least one of these dose optimization techniques: automated exposure control; mA and/or kV adjustment per patient size (includes targeted exams where dose is matched to clinical indication); or iterative reconstruction. Contrast material: ISOVUE; Contrast volume: 80 ml; Contrast route: INTRAVENOUS (IV); COMPARISON: CT ANGIO ABDOMEN PELVIS 09/07/2024 9:48 AM FINDINGS: Pulmonary arteries: Adequate contrast opacification of the pulmonary arteries. Main pulmonary artery is normal in caliber. No acute pulmonary emboli. Aorta: No thoracic aortic aneurysm or dissection. Thymus: Minor residual thymic tissue. Lungs: The trachea and main bronchi are patent. Moderate upper lobe peribronchial interstitial emphysema. Scattered calcified pulmonary granuloma. No airspace consolidation or concerning infiltrate. No pulmonary mass. Pleural spaces: Unremarkable. No pneumothorax. No pleural effusion. Heart: Normal heart size. No pericardial effusion. Coronary arteries: Coronary artery calcification versus stent in the LAD. Mediastinal space: No mediastinal mass or hematoma. Lymph nodes: No mediastinal or hilar lymphadenopathy. Intraperitoneal space: No acute process in the upper abdomen. Bones/joints: Mild degenerative changes of the thoracic spine. Minor thoracic dextrocurvature. No acute osseous abnormality. Soft tissues: Unremarkable. IMPRESSION: 1. No acute pulmonary emboli. 2. Moderate upper lobe predominant peribronchial interstitial emphysema (PIE). 3. Scattered calcified pulmonary granuloma. 4. Coronary artery calcification versus stent artifact in the LAD.
[2025-04-23 20:47] LABS: Hematocrit 41.9 % (42.0-52.0); Hemoglobin 13.8 g/dL (14.1-18.0); Immature Granulocytes % 0.1 %; Mean Corpuscular HGB Conc 32.9 g/dL (31.8-35.4); Mean Corpuscular Hemoglobin 32.1 pg (27.0-31.2); Mean Corpuscular Volume 97.4 fl (80-94); Nucleated Red Blood Cells % 0 %; Platelet Count 376 K/mm3 (142-424); Red Blood Count 4.30 M/mm3 (4.60-6.20); Red Cell Distribution Width-SD 48.7 fL; White Blood Count 6.9 K/mm3 (4.8-10.8)
[2025-04-23 20:50] LABS: Chloride 114 mmol/L (98-107)
[2025-04-23 20:51] LABS: Albumin Level 4.6 g/dl (3.5-5.0); Potassium 3.5 mmoL/L (3.5-5.1); Sodium 141 mmol/L (136-145)
[2025-04-23 20:53] LABS: Blood Urea Nitrogen 18 mg/dl (9-20); Creatinine Clearance Estimated 168 mL/min (50-200); Creatinine,Serum 0.80 mg/dl (0.66-1.25); Estimated Glomerular Filt Rate 106 ml/min (>60); GFR (African American) 128 ML/MIN (>60)
[2025-04-23 20:54] LABS: Alanine Aminotransferase 21 U/L (12-78); Albumin/Globulin Ratio 1.7 (1.1-1.8); Alkaline Phosphatase 109 U/L (38-126); Anion Gap 13.5 mEq/L (5-15); Aspartate Amino Transferase 29 U/L (17-59); Bilirubin,Total 0.4 mg/dl (0.2-1.3); Calcium 9.3 mg/dl (8.4-10.2); Carbon Dioxide 17 mmol/L (22.0-30.0); Globulin 2.7 g/dL (1.3-3.2); Glucose 94 mg/dl (74-100); Total Protein,Serum 7.3 g/dl (6.3-8.2)
[2025-04-23] MEDS: ACETAMINOPHEN 500MG TAB 1000 MG PO (20:58)
[2025-04-23] MEDS: OXYCODONE 5MG IMMEDIATE RELEASE TABLET 5 MG PO (20:58)
[2025-04-23 21:00] VITALS: BP 131/89; PULSE 69; RESP 18; O2SAT 97
[2025-04-23 21:06] LABS: Troponin I < 0.01 ng/ml (0.00-0.034)
[2025-04-23] MEDS: SODIUM CHLORIDE 0.9% 10ML SYR (RAD ONLY) 10 ML IV (21:18)
[2025-04-23] MEDS: IOPAMIDOL-370 (76%);100ML BOTTLE 80 ML IV (21:18)
[2025-04-23] MEDS: 0.9 % SODIUM CHLORIDE 50 ML VIAL 40 ML IV (21:18)
[2025-04-23 21:25] VITALS: PULSE 77; RESP 16; TEMP 36.7; O2SAT 96; BMI 40.3
[2025-04-23 21:45] VITALS: BP 139/80; PULSE 74; RESP 14; O2SAT 100
[2025-04-23 22:00] VITALS: BP 143/85; PULSE 67; RESP 17; O2SAT 99
[2025-04-23 23:14] VITALS: BP 124/71; PULSE 68; RESP 14; TEMP 36.6; O2SAT 98
== END 2025-04-23 23:22 | disposition home or self-care (01) ==
PROVIDERS: Emergency Provider Student in an Organized Health Care Education/Training Program; PCP Family Medicine
DX: R07.89 Other chest pain (principal); E78.5 Hyperlipidemia, unspecified; I10 Essential (primary) hypertension; I25.10 Atherosclerotic heart disease of native coronary artery without angina pectoris; F17.200 Nicotine dependence, unspecified, uncomplicated
CPT/HCPCS: 71275; 80053; 84484; 85025; 93005; 99285; Q9967

== ENCOUNTER 2025-05-07 23:30 | Emergency (ER) | payer MEDICARE, OTHER, SELFPAY ==
[2025-05-08 00:53] VITALS: BP 133/83; PULSE 88; RESP 18; TEMP 36.8; O2SAT 100; BMI 27.2
--- NOTE | 2025-05-08 01:42 | XR_ITS ---
PROCEDURE INFORMATION: Exam: XR Left Toe(s) Exam date and time: 05/08/2025 2:00 AM Age: 45 years old Clinical indication: Pain; Toes; Left; Additional info: Great toe/2nd toe pain/ttp TECHNIQUE: Imaging protocol: Radiologic exam of the left toes. Views: Minimum 2 views. COMPARISON: CR XR FOOT LT MIN 3V 05/08/2025 2:00 AM FINDINGS: Bones/joints: Essentially nondisplaced fracture in the 1st proximal phalanx. Old-appearing deformity in the 2nd proximal phalanx Soft tissues: No significant focal soft tissue swelling. IMPRESSION: Essentially nondisplaced fracture in the 1st proximal phalanx.
--- NOTE | 2025-05-08 01:42 | XR_ITS ---
PROCEDURE INFORMATION: Exam: XR Left Foot Exam date and time: 05/08/2025 2:00 AM Age: 45 years old Clinical indication: Pain; Toes; Left; Additional info: Pain ttp distal 1-3 metatarsals TECHNIQUE: Imaging protocol: Radiologic exam of the left foot. Views: 3 or more views. COMPARISON: CR XR TOE LT MIN 2V 05/08/2025 2:00 AM FINDINGS: Bones/joints: Essentially nondisplaced fracture in the 1st proximal phalanx. Old-appearing deformity in the 2nd proximal phalanx Soft tissues: Grossly unremarkable. IMPRESSION: Essentially nondisplaced fracture in the 1st proximal phalanx.
[2025-05-08] MEDS: IBUPROFEN 800 MG TABLET PO (01:50)
[2025-05-08] MEDS: ACETAMINOPHEN 500MG TAB 1000 MG PO (01:50)
[2025-05-08 02:21] VITALS: PULSE 82; O2SAT 99
[2025-05-08 02:30] VITALS: BP 137/75; PULSE 80; O2SAT 99
--- NOTE | 2025-05-08 02:49 | HMH.EDGENADL ---
Discharge Plan Disposition Patient Disposition: Home, Self-Care Condition: Good Prescriptions Prescriptions: No Action cyanocobalamin (vitamin B-12) 1,000 mcg capsule 1,000 mcg PO DAILY aspirin 325 mg tablet,delayed release (DR/EC) 325 mg PO DAILY Qty: 90 1RF atorvastatin 80 mg tablet 80 mg PO DAILY Qty: 90 1RF carbamazepine 200 mg capsule, ER multiphase 12 hr 200 mg PO BID Qty: 180 1RF cetirizine [All Day Allergy (cetirizine)] 10 mg tablet 10 mg PO DAILY Qty: 90 1RF ezetimibe 10 mg tablet 10 mg PO DAILY Qty: 90 1RF furosemide 20 mg tablet 20 mg PO DAILY Qty: 90 1RF lisinopril 10 mg tablet 10 mg PO DAILY Qty: 90 1RF mirtazapine 7.5 mg tablet 7.5 mg PO DAILY Qty: 90 1RF nitroglycerin 0.4 mg tablet, sublingual 0.4 mg sublingual Q5M PRN (Reason: chest pain) Qty: 20 1RF Rx Instructions: do not exceed 3 doses per episode omega 0-dgb-ajt-fish oil 120-180-500 mg capsule 1 cap PO DAILY Qty: 90 1RF paroxetine HCl 40 mg tablet 40 mg PO DAILY Qty: 90 1RF potassium chloride 10 mEq capsule, extended release 10 meq PO DAILY Qty: 90 1RF propranolol 40 mg tablet 40 mg PO BID Qty: 180 1RF triamcinolone acetonide 0.025 % ointment 1 applic topical TID PRN (Reason: rash) Qty: 15 0RF Rx Instructions: apply to rash on back as directed hydrocortisone [Anusol-HC] 2.5 % cream with perineal applicator 1 applic NM QD-BID PRN (Reason: hemorrhoids) Qty: 30 0RF methocarbamol 500 mg tablet 500 mg PO BID Qty: 60 0RF lidocaine 5 % adhesive patch,medicated 1 patch topical DAILY Qty: 15 0RF Rx Instructions: leave on most painful area for up to 12 hrs Referrals Follow up/Referrals: Provider,Referral, MD [Primary Care Provider, Medical] - See instructions Che Oconnell DPM [Staff Physician, Podiatry] - See instructions Referral Note: Fracture left great toe Activity Restrictions/Add. Instructions Additional Instructions/Restrictions: You were evaluated in the ER and are believed to be appropriate for discharge at this time. Take Tylenol and ibuprofen if needed for pain, do not exceed the recommended dose on the bottle. Drink water and eat a small snack each time you take these medications to avoid side effects. Wear the walking boot anytime you need to be on your feet. Keep the foot elevated to help reduce swelling and pain. Call Dr. Oconnell's office first thing Friday morning and make an appointment for follow-up. She is the cloth doffer (foot doctor). Also make an appointment with your primary care doctor for reevaluation. Return to the ER with any new, worsening, or otherwise concerning symptoms. Clinical Impressions Clinical Impression: Closed fracture of left great toe Print Language Print Language: Yi Discharge ED Provider: Cheryl Cragi Adult HPI General Chief complaint: PAIN Stated complaint: L big toe pain, swelling Time Seen by Provider: 05/08/25 01:31 Mode of Arrival: Ambulatory Source of Information: Patient Description of Symptoms (Recalled from ER Triage Doc. by RN): Pt presents to ED for L toe pain. Pt states he thinks the toe may be broken. Pt rates pain 5/10. History of Present Illness HPI narrative: 45-year-old male presents to the ER for 3 days of left toe pain. Few days ago patient tripped over family members walking boot and struck his left big toe. He has had pain, swelling, bruising since that time but it is more painful today so he came to the ER for evaluation. No medications prior to arrival. Patient is worried about the toe being broken. He is not a diabetic but does report a history of CAD, hypertension, hyperlipidemia. No other injuries, no chest pain or difficulty breathing, no headaches or dizziness, no abdominal complaints, no numbness, tingling, or weakness. No other complaints or concerns Related Data Home Medications ?Medication ?Instructions ?Recorded ?Confirmed cyanocobalamin (vitamin B-12) 1,000 mcg PO DAILY 06/25/24 05/03/25 1,000 mcg capsule Previous Rx's ?Medication ?Instructions ?Recorded aspirin 325 mg tablet,delayed 325 mg PO DAILY #90 tabs 09/28/24 release atorvastatin 80 mg tablet 80 mg PO DAILY #90 tabs 09/28/24 carbamazepine 200 mg 200 mg PO BID #180 caps 09/28/24 capsule,extended release [id number] cetirizine 10 mg tablet (All Day 10 mg PO DAILY #90 tabs 09/28/24 Allergy (cetirizine)) ezetimibe 10 mg tablet 10 mg PO DAILY #90 tabs 09/28/24 furosemide 20 mg tablet 20 mg PO DAILY #90 tabs 09/28/24 lisinopril 10 mg tablet 10 mg PO DAILY #90 tabs 09/28/24 mirtazapine 7.5 mg tablet 7.5 mg PO DAILY #90 tabs 09/28/24 nitroglycerin 0.4 mg sublingual 0.4 mg sublingual Q5M PRN chest 09/28/24 tablet pain #20 tabs omega 4-cig-bju-fish oil 120 1 cap PO DAILY #90 caps 09/28/24 mg-180 mg-500 mg capsule paroxetine HCl 40 mg tablet 40 mg PO DAILY #90 tabs 09/28/24 potassium chloride 10 mEq 10 meq PO DAILY #90 caps 09/28/24 capsule,extended release propranolol 40 mg tablet 40 mg PO BID #180 tabs 09/28/24 triamcinolone acetonide 0.025 % 1 applic topical TID PRN rash #15 02/28/25 topical ointment grams lidocaine 5 % topical patch 1 patch topical DAILY #15 ea 04/23/25 methocarbamol 500 mg tablet 500 mg PO BID #60 tabs 04/23/25 hydrocortisone 2.5 % topical cream 1 applic NM QD-BID PRN hemorrhoids 05/03/25 with perineal applicator #30 grams (Anusol-HC) Allergies Allergy/AdvReac Type Severity Reaction Status Date / Time cefaclor (From Ceclor) Allergy Verified 05/03/25 10:22 Sulfa (Sulfonamide Allergy Verified 05/03/25 10:22 Antibiotics) [facility] Disclaimer: The information contained in this section may have been updated after the patient was seen, as this information can be updated by other users. Medical History Rash and nonspecific skin eruption Rectal prolapse Corectopia Seizure disorder Hyperlipidemia Hypertension Coronary artery disease Myocardial infarction Learning disability Mood disorder Edentulous Surgical History Stented coronary artery History of tonsillectomy and adenoidectomy Social History Smoking Status: Current every day smoker alcohol intake: never current occupational status: disabled Travel in the last 8 weeks?: None Have you lived/traveled outside [place] in past 30 days?: No Contact w/someone who lives/traveled outside [place] past 30 days?: No Exposure to someone with infectious disease in past 14 days?: No Do you have a fever (greater than 100.4 F or 38 C)?: No Have you tested positive for COVID-19?: No Exposed to someone with COVID-19 in past 14 days?: No Do you have a sore throat?: No Do you have a cough?: No Do you have any weakness?: No Do you have any diarrhea?: No Are you experiencing any unusual bleeding?: No Do you have any muscle aches/pain?: No Do you have any abdominal pain?: No Are you experiencing loss of taste or smell?: No ROS Obtained: Yes Systems reviewed as appropriate & no additional complaints except as documented Per HPI Physical Exam General General appearance: alert and in no apparent distress Head Head exam: atraumatic and normocephalic Eye Eye exam: Present PERRL and EOMI ENT ENT exam: Present mucous membranes moist Neck Neck exam: Present normal inspection and full ROM Chest Chest inspection: Present symmetric chest wall rise Respiratory Respiratory exam: Absent respiratory distress or stridor Cardiovascular Cardiovascular exam: Present regular rate and normal rhythm Abdominal Exam Abdominal exam: Present soft; Absent distention or tenderness Extremities Exam Extremities exam: Present full ROM Expanded Lower Extremity Exam Left: Top foot image:  1. Maximum area of pain and bruising 2. Area of swelling, pain, bruising Comment: Neurovascularly intact throughout Neurological Exam Neurological exam: Present alert and oriented X3; Absent motor sensory deficit Psychiatric Psychiatric exam: Present normal affect and normal mood Skin Skin exam: Present warm and dry Medical Decision Making Medical Records Medical records reviewed: Yes I reviewed the patient's medical records. Screening: Per USPSTF and CDC recommendations, given the prevalence of disease in our region, it is our hospital?s policy to screen for HIV and viral Hepatitis for all patients aged 18 and over and those with ongoing risk factors. Ulices Inquiry Pt receiving controlled substance: No Vital Signs: 05/08/25 00:53 05/08/25 02:21 05/08/25 02:30 Temperature 98.2 F Temperature Source Oral Pulse Rate 82 80 Pulse Rate [Left] 88 Respiratory Rate 18 Blood Pressure Blood Pressure [Right Arm] 133/83 Blood Pressure Mean Blood Pressure Mean [Right Arm] 99 Blood Pressure Source Blood Pressure Position 02 Sat by Pulse Oximetry 100 99 99 Oxygen Delivery Method Room Air 05/08/25 02:30 05/08/25 02:57 Temperature 98.2 F Temperature Source Pulse Rate 80 Pulse Rate [Left] Respiratory Rate 18 Blood Pressure 137/75 137/75 Blood Pressure [Right Arm] Blood Pressure Mean 107 Blood Pressure Mean [Right Arm] Blood Pressure Source Automatic Cuff Blood Pressure Position Sitting 02 Sat by Pulse Oximetry Oxygen Delivery Method Room Air Orders (Tests/Meds): ED MEDICATIONS Discontinued Medications Generic Name Dose Route Start Last Admin Trade Name Freq PRN Reason Stop Dose Admin Acetaminophen 1,000 mg 05/08/25 01:44 05/08/25 01:50 Acetaminophen 500mg Tab PO 05/08/25 01:45 1,000 mg ONCE ONE Administration Ibuprofen 800 mg 05/08/25 01:44 05/08/25 01:50 Ibuprofen 800 Mg Tablet PO 05/08/25 01:45 800 mg ONCE ONE Administration ORDERS Category Date Time Status Foot XR left minimum 3 views [XR foot LT min 3V] Stat Exams 05/08/25 01:42 Completed Toe XR left minimum 2 views [XR toe LT min 2V] Stat Exams 05/08/25 01:42 Completed Medical Decision Narrative: In summary, this 45-year-old with comorbidities described in the HPI presents to the emergency department today with left toe pain. On initial evaluation patient is hemodynamically stable, afebrile, overall well-appearing, physical exam is notable for tenderness and swelling of the left great toe, second toe, and the distal 1st and 2nd metatarsals. Neurovascularly intact. No injury to the nail. No other evidence of injury. No other abnormalities. Differential diagnosis includes but is not limited to fracture, dislocation, soft tissue injury. Based on these concerns, I ordered x-ray left foot and toes. Patient received Tylenol and ibuprofen in the ER for pain management. X-rays personally interpreted demonstrate fracture of the proximal phalanx of the left great toe. See radiology read for final interpretation. On reassessment patient is stable. Results were reviewed with him. Patient was placed in a walking boot and provided referral to podiatry for follow-up. Patient was given instructions on symptomatic management, follow up instructions, and return precautions for the emergency department. Patient indicated understanding and was discharged in stable condition. Critical Care Critical Care Time Critical Care Time: No
[2025-05-08 02:57] VITALS: BP 137/75; PULSE 80; RESP 18; TEMP 36.8; O2SAT 99
== END 2025-05-08 02:58 | disposition home or self-care (01) ==
PROVIDERS: Emergency Provider Emergency Medicine
DX: S92.402A Displaced unspecified fracture of left great toe, initial encounter for closed fracture (principal); I10 Essential (primary) hypertension; E78.5 Hyperlipidemia, unspecified
CPT/HCPCS: 73630; 73660; 99283

== ENCOUNTER 2025-05-16 12:24 | Outpatient (CLI) | payer MEDICARE, OTHER, SELFPAY ==
--- NOTE | 2025-05-16 12:33 | XR_ITS ---
FINAL REPORT CLINICAL HISTORY: evaluate left great toe fracture COMPARISON: 05/08/2025 FINDINGS: Three views show an oblique fracture of the first proximal phalanx, faintly visualized and compatible with healing fracture. No evidence of displacement. No new osseous abnormality. The joint spaces appear normal. IMPRESSION: Partial healing nondisplaced first proximal phalange fracture. Reviewed, Interpreted and Dictated by Anupam Ruvalcaba MD Transcribed by Faith Butterfield Authenticated and . [facility]
== END 2025-05-16 23:59 | disposition home or self-care (01) ==
LOC: RAD 12:25
PROVIDERS: PCP Family Medicine; Visit Provider Podiatrist
DX: S92.415D Nondisplaced fracture of proximal phalanx of left great toe, subsequent encounter for fracture with routine healing (principal)
CPT/HCPCS: 73630

== ENCOUNTER 2025-05-18 07:15 | Outpatient (CLI) | payer MEDICARE, OTHER, SELFPAY ==
--- NOTE | 2025-05-18 | CA_ITS ---
APPROVED REPORT Exam: Pharmacologic Technologist: Natalie Lee Stress Nurse: Tamy Combs Ht: 5 ft 9 in Wt: 195 lbs BSA: 2.04 m2 HR: 71 bpm BP: 115/79 mmHg Stress Test Details Test: Lexiscan HR Resting HR: 71 bpm Max Heart Rate (APMHR): [phone] bpm Max HR Achieved: 95 bpm Target HR (85% APMHR): [phone] bpm % of APMHR: 53.67 Recovery HR: 81 bpm BP Resting BP: 115.0/79.0 mmHg Max BP: 134.0/79.0 mmHg Recovery BP: 118.0/80.0 mmHg ECG Resting ECG: Sinus rhythm Stress ECG Conclusion Symptoms: None Arrhythmias/Ectopy: None ST-T Changes: Less than 0.[address] segment changes Conclusionj: Non-diagnostic ECG/Lexiscan Electronically signed by : Agnieszka Sharma MD 05/18/2025 12:40:13
--- NOTE | 2025-05-18 07:30 | NM_ITS ---
APPROVED REPORT Exam: Nuclear Stress Test Indication: cp..soa Patient Location: Outpatient Stress Tech: Natalie WONG Tech:RUBEN Braxton RT(R)(N) Ht: 5 ft 10 in Wt: 190 lbs HR: 76 bpm BP: 115/79 mmHg BSA: 2.04 m2 TID: 0.95 BMI: 27.2 History: cp..soa Procedure: Patient received 0.4 mg of intravenous Lexiscan, resting heart rate 76 bpm, resting blood pressure 115/79 mmHg, with Lexiscan maximum heart rate achieved was 96 bpm which is 85 % of the maximum predicted heart rate and blood pressure was 119/77 mmHg. Cardiac Stress and Resting SPECT Images: Cardiac Stress and Resting SPECT images were obtained using technetium 99m Myoview 30.5 mCi stress and 10.53 mCi at rest. Raw images demonstrate significant soft tissue overlap with the cardiac borders. This may affect the diagnostic interpretation of the study findings. Technically difficult study. Resting and stress imaging in supine and prone positions demonstrate a large sized, moderate, partially reversible perfusion defect in the inferior LV wall. Gated imaging demonstrates low-normal global LV systolic function. LVEF is calculated at 50%. Conclusion: Large sized, moderate, partially reversible perfusion defect in the inferior LV wall. Findings are suggestive of partial reversible ischemia. Gated imaging demonstrates low-normal global LV systolic function. LVEF is calculated at 50%. Electronically signed by : Agnieszka Sharma MD 05/18/2025 12:22:45
[2025-05-18 09:00] VITALS: BP 115/79; PULSE 71; RESP 16
[2025-05-18] MEDS: ISOTOPE MYOVIEW (PER STUDY) 1 DOSE IV (10:22)
[2025-05-18] MEDS: SODIUM CHLORIDE 0.9% 10ML SYR (RAD ONLY) 10 ML IV ×2 (10:23)
== END 2025-05-18 23:59 | disposition home or self-care (01) ==
PROVIDERS: PCP Family Medicine; Visit Provider Physician Assistant
DX: I25.10 Atherosclerotic heart disease of native coronary artery without angina pectoris (principal); R94.31 Abnormal electrocardiogram [ECG] [EKG]; R94.39 Abnormal result of other cardiovascular function study
CPT/HCPCS: 78452; 93017; 93018; A9502; J2785

== ENCOUNTER 2025-06-21 12:50 | Outpatient (CLI) | payer MEDICARE, OTHER, SELFPAY ==
--- NOTE | 2025-06-21 13:00 | CA_ITS ---
APPROVED REPORT EXAM: Comprehensive 2D, Doppler, and color-flow Echocardiogram Enrollment Representative: Denita Narvaez RVT Ht: 5 ft 9 in Wt: 195lbs BSA: 2.04 BP: 125/81 mmHg Indications: ABNORMAL STRESS TEST,ABNORMAL EKG 2D Dimensions LA Volume 48.80 mL LA Volume Index 23.80 mL/m2 (M/F) 16-34 M-Mode Dimensions RVDd 2.16 cm (0.9-2.6) LA Diam 3.60 cm (1.9-4.0) LVDd 5.69 cm (3.5-5.7) LVDs 4.06 cm (3.5-5.7) IVSd 1.06 cm (0.6-1.1) PWd 0.91 cm (0.6-1.1) EF (Teich) 54.50% FS 28.60% EDV (Teich) 159.40 mL TAPSE 2.58 (<1.7) ESV (Teich) 72.50 mL LV Diastology E Decel Time 160 (160-240 msec) E/A Ratio 1.2 Aortic Valve AMOR Index 1.65 cm2/m2 AoV Peak Reymundo. 151.0 (50-130 cm/s) AO Peak GR. 9.20 mmHg AO Mean GR. 4.90 (<5 mmHg) AO VTI 29.6 (18-25 cm) AMOR (VTI) 3.45 (2.5-4.5 cm2) Mitral Valve MV E Max Reymundo. 86.0 (40-130 cm/s) MV A Velocity 73.0 (40-130 cm/s) E/A Ratio 1.18 MV PHT 47.0 ms Pulmonary Valve PV Peak Velocity 96.0 (50-150 cm/s) Tricuspid Valve TR P. Velocity 205.00 cm/s RAP Estimate 8.00 mmHg RVSP 24.90 mmHg Left Ventricle The left ventricle is normal size. Left ventricular systolic function is low normal. There is normal left ventricular wall thickness. There is normal LV segmental wall motion. The left ventricular diastolic function is normal. LVEF is 50%. Right Ventricle The right ventricle is normal size. The right ventricular systolic function is normal. Atria The left atrium is mildly dilated. The right atrium is mildly dilated. There is no color Doppler evidence of interatrial shunt. Aortic Valve The aortic valve opens well. There is no hemodynamically significant aortic valvular stenosis. No aortic regurgitation is present. Mitral Valve The mitral valve is normal in structure. No evidence of mitral valve stenosis. Mild mitral regurgitation is present. Tricuspid Valve The tricuspid valve leaflets are thin and pliable. Mild tricuspid regurgitation. RVSP is 20-25 mmHg. Pulmonic Valve The pulmonary valve is grossly normal in structure. Trace pulmonic valve regurgitation is present. Great Vessels The aortic root is normal in size. IVC is normal in size and collapses >50% with inspiration. Pericardium There is no pericardial effusion. Other Information Study Quality: Fair Conclusion Normal biventricular systolic function. Mild biatrial dilation. Mild MR, mild TR. Electronically signed by : Agnieszka Sharma MD 06/27/2025 13:03:57
== END 2025-06-21 23:59 | disposition home or self-care (01) ==
LOC: RT 12:51
PROVIDERS: PCP Family Medicine; Visit Provider Physician Assistant
DX: I08.1 Rheumatic disorders of both mitral and tricuspid valves (principal); I25.10 Atherosclerotic heart disease of native coronary artery without angina pectoris; R94.31 Abnormal electrocardiogram [ECG] [EKG]; R94.39 Abnormal result of other cardiovascular function study
CPT/HCPCS: 93306